=== PATIENT | female | born 1965 | race Caucasian/White ===

== ENCOUNTER 2021-09-16 00:58 | Emergency (ER) | payer OTHER ==
[2021-09-16] MEDS ORDERED: ONDANSETRON 4 MG/2 ML (SDV) Z0FRAN IVP STA (01:04)
[2021-09-16] MEDS ORDERED: KETOROLAC 30 MG/ML VIAL IVP STA (01:04)
[2021-09-16] MEDS ORDERED: NS IV 1000 ML 1,000 ML IV STA (01:04)
--- NOTE | 2021-09-16 01:11 | ED Abdominal Pain ---
General Chief Complaint: Abdominal/GI Problems Stated Complaint: ABDO PAIN Source of Information: Patient, EMS History of Present Illness Date Seen by Provider: Sep 16, 2021 Time Seen by Provider: 00:58 Initial Comments 55-year-old female presenting by EMS with complaints of left lower quadrant abdominal pain that had sudden onset about an hour prior to arrival. She denies any trauma to her belly. She has had a history of kidney stones. She denies any fever or chills. She has had nausea and vomiting with the pain. She denies any pain or burning with urination. She has had no diarrhea or change in her b owels. She states that she has drank some wine tonight. Timing/Duration: 1 Hour Severity/Quality: Severe Location: LLQ Radiation: LLQ Activities at Onset: None Associated Symptoms: No Back Pain, No Chest Pain, No Diaphoresis, No Fever/Chills, No Fatigue, No Headache, No Heartburn; Nausea/Vomiting (With the pain); No Rash, No Shortness of Air, No Swelling/Mass in Abdomen, No Syncope, No Weakness Allergies and Home Medications Allergies Coded Allergies: No Known Drug Allergies (Unverified , 09/16/21) Patient Home Medication List Home Medication List Reviewed: Yes Hydrocodone/Acetaminophen (Hydrocodone-Acetamin 5-325 mg) 5 Mg-325 Mg Tablet, 1 TAB PO Q6H PRN for PAIN-SEVERE (8-10) Prescribed by: MARCIA FIGUEROART on 09/16/21326 Ondansetron (Ondansetron Odt) 4 Mg Tab.rapdis, 4 MG PO Q6H PRN for NAUSEA/VOMITING Prescribed by: MARCIA LINNYART on 09/16/21 032 Tamsulosin HCl (Flomax) 0.4 Mg Cap, 0.4 MG PO DAILY Prescribed by: MARCIA LINNYART on 09/16/21 032 Review of Systems Review of Systems Constitutional: No chills, No fever EENTM: No Symptoms Reported Respiratory: No Symptoms Reported Cardiovascular: No Symptoms Reported Gastrointestinal: See HPI Genitourinary: Denies Burning, Denies Drainage, Denies Frequency; Flank Pain (Left flank and lower quadrant abdominal pain) Musculoskeletal: no symptoms reported Skin: No rash Psychiatric/Neurological: Anxiety Endocrine: No Symptoms Reported Hematologic/Lymphatic: No Symptoms Reported Past Kzdrwvc-Yjrxqk-Epbxvb Hx Patient Social History Alcohol Use?: Yes Alcohol type: Wine Past Medical History Surgery/Hospitalization HX: Kidney stones Physical Exam Vital Signs Vital Signs - First Documented 09/16/21 00:58 Temp 36.4 Pulse 84 Resp 18 B/P (MAP) 149/86 (107) Pulse Ox 95 O2 Delivery Room Air Capillary Refill : Height/Weight/BMI Height: '" Weight: lbs. oz. kg; BMI Method: General Appearance: mild distress, obese HEENT: PERRL/EOMI, pharynx normal Neck: non-tender, full range of motion, supple, normal inspection Respiratory: chest non-tender, lungs clear, normal breath sounds, no respiratory distress, no accessory muscle use Cardiovascular: normal peripheral pulses, regular rate, rhythm Gastrointestinal: normal bowel sounds, non tender (Complaints of pain but denies any increase in the pain with palpation), soft, no pulsatile mass; No distended, No guarding, No rebound, No tenderness Rectal: deferred Extremities: normal range of motion, non-tender, no calf tenderness, normal capillary refill Back: no CVA tenderness, no vertebral tenderness Neurologic/Psychiatric: alert, oriented x 3 Skin: normal color, warm/dry Progress/Results/Core Measures Results/Orders Lab Results Laboratory Tests Test 09/16/21 01:07 Range/Units White Blood Count 12.5 H 4.3-11.0 10^3/uL Red Blood Count 4.31 3.80-5.11 10^6/uL Hemoglobin 11.6 11.5-16.0 g/dL Hematocrit 35 35-52 % Mean Corpuscular Volume 81 80-99 fL Mean Corpuscular Hemoglobin 27 25-34 pg Mean Corpuscular Hemoglobin Concent 33 32-36 g/dL Red Cell Distribution Width 13.7 10.0-14.5 % Platelet Count 387 130-400 10^3/uL Mean Platelet Volume 9.1 9.0-12.2 fL Immature Granulocyte % (Auto) 0 % Neutrophils (%) (Auto) 63 42-75 % Lymphocytes (%) (Auto) 25 12-44 % Monocytes (%) (Auto) 9 0-12 % Eosinophils (%) (Auto) 2 0-10 % Basophils (%) (Auto) 1 0-10 % Neutrophils # (Auto) 7.9 H 1.8-7.8 10^3/uL Lymphocytes # (Auto) 3.1 1.0-4.0 10^3/uL Monocytes # (Auto) 1.2 H 0.0-1.0 10^3/uL Eosinophils # (Auto) 0.2 0.0-0.3 10^3/uL Basophils # (Auto) 0.1 0.0-0.1 10^3/uL Immature Granulocyte # (Auto) 0.0 0.0-0.1 10^3/uL Sodium Level 137 135-145 MMOL/L Potassium Level 4.0 3.6-5.0 MMOL/L Chloride Level 99 98-107 MMOL/L Carbon Dioxide Level 25 21-32 MMOL/L Anion Gap 13 5-14 MMOL/L Blood Urea Nitrogen 25 H 7-18 MG/DL Creatinine 1.06 0.60-1.30 MG/DL Estimat Glomerular Filtration Rate 62 BUN/Creatinine Ratio 24 Glucose Level 188 H 70-105 MG/DL Calcium Level 8.9 8.5-10.1 MG/DL Corrected Calcium 9.1 8.5-10.1 MG/DL Total Bilirubin 0.2 0.1-1.0 MG/DL Aspartate Amino Transf (AST/SGOT) 19 5-34 U/L Alanine Aminotransferase (ALT/SGPT) 20 0-55 U/L Alkaline Phosphatase 106 40-136 U/L Total Protein 6.5 6.4-8.2 GM/DL Albumin 3.8 3.2-4.5 GM/DL Lipase 23 8-78 U/L My Orders Orders - MARCIA COREY MD Comprehensive Metabolic Panel (09/16/21 01:04) Lipase (09/16/21 01:04) Ua Culture If Indicated (09/16/21 01:04) Ed Iv/Invasive Line Start (09/16/21 01:04) Cbc With Automated Diff (09/16/21 01:04) Ct Abdomen/Pelvis Wo (09/16/21 01:04) Ns Iv 1000 Ml (Sodium Chloride 0.9%) (09/16/21 01:04) Ketorolac Injection (Toradol Injection) (09/16/21 01:04) Ondansetron Injection (Zofran Injectio (09/16/21 01:04) Strain Urine (09/16/21 02:58) Tamsulosin Capsule (Flomax Capsule) (09/16/21 03:00) Rx-Hydrocodone/Apap 5-325 Mg (Rx-Vicodin (09/16/21 03:30) Medications Given in ED Current Medications Medications Dose Ordered Sig/Cass Route Start Time Stop Time Status Last Admin Dose Admin Acetaminophen/ Hydrocodone Bitart 1 ea Q6H PRN PO 09/16/21 03:30 09/16/21 03:32 DC 09/16/21 03:32 1 EA Vital Signs/I&O 09/16/21 09/16/21 00:58 03:25 Temp 36.4 Pulse 84 96 Resp 18 18 B/P (MAP) 149/86 (107) 149/86 Pulse Ox 95 96 O2 Delivery Room Air Room Air Progress Progress Note #1: Progress Note Check labs as well as urine and CT scan of the abdomen and pelvis. Give normal saline 1 L IV fluid bolus for hydration, Toradol 30 mg IV for pain, Zofran 4 mg IV for nausea and vomiting. Differential diagnosis includes kidney stone, diverticulitis, constipation, colitis, pyelonephritis, cystitis Progress Note #2: Progress Note Labs shows mild elevation white blood cell count to 12.5. Chemistry stable without acute significant abnormality. CT scan shows a small 1 mm kidney stone at the left UVJ. There is mild to moderate hydronephrosis and hydroureter. Counseled patient and about results and findings. Advised to push fluids and rest. Use Flomax to help the ureter relax and the stone pass. Hydrocodone for severe pain. Check back with regular provider or urologist if not improving Diagnostic Imaging Diagonstic Imaging: CT Plain Films/CT/US/NM/MRI: abdomen, pelvis Comments NAME: [facility] REC#: [id number] PT STATUS: REG ER : 1965 PHYSICIAN: MARCIA COREY MD ADMIT DATE: 09/16/21/ER FS Signed Date of Exam:09/16/21 CT ABDOMEN/PELVIS WO PROCEDURE: CT abdomen and pelvis without contrast. TECHNIQUE: Multiple contiguous axial images were obtained through the abdomen and pelvis without the use of intravenous contrast. Auto Exposure Controls were utilized during the CT exam to meet ALARA standards for radiation dose reduction. INDICATION: Left lower quadrant pain The lung bases are clear. Liver appears normal. The gallbladder appears normal. Pancreas appears normal. Spleen appears normal. GE junction is unremarkable. Adrenals are normal. There is a 1 mm calculus in lower pole calyx of the right kidney. There is a 2 mm calculus in the distal left ureter causing hydronephrosis of left kidney. Small intestine and colon are unremarkable. Uterus and ovaries are unremarkable. There is no intraperitoneal free air or free fluid. IMPRESSION: Right nephrolithiasis. Small calculus distal left ureter near the ureterovesical junction causing mild hydronephrosis of left kidney. Dictated by: Dictated on workstation # [id number] Dict: 09/16/21 0238 Trans: 09/16/21240 TCB [id number] Interpreted by: SYLVIE RODRIGUEZ MD Electronically signed by: SYLVIE RODRIGUEZ MD 09/16/21240 Reviewed: Reviewed by Me Departure Impression Primary Impression: Renal colic on left side Additional Impressions: Left lower quadrant abdominal pain Calculus of distal left ureter Disposition: HOME, SELF-CARE Condition: Stable Departure-Patient Inst. Decision time for Depature: 02:58 Referrals: NO,LOCAL PHYSICIAN (PCP) Primary Care Physician JERROD LOVE MD Patient Instructions: Kidney Stone, Adult ED, Kidney Stone Diet, How to Strain Your Urine Add. Discharge Instructions: Stay well-hydrated and drink plenty of fluids. Take the Flomax to help with irritation of the ureter. If pain and symptoms do not resolve within the next 2 to 3 days then check back with urology about your symptoms. All discharge instructions reviewed with patient and/or family. Voiced understanding. Scripts Ondansetron (Ondansetron Odt) 4 Mg Tab.rapdis 4 MG PO Q6H PRN for NAUSEA/VOMITING for 3 Days, #12 TAB 0 Refills Prov: MARCIA COREY MD 09/16/21 Hydrocodone/Acetaminophen (Hydrocodone-Acetamin 5-325 mg) 5 Mg-325 Mg Tablet 1 TAB PO Q6H PRN for PAIN-SEVERE (8-10) for 4 Days, #16 TAB 0 Refills Prov: MARCIA COREY MD 09/16/21 Tamsulosin HCl (Flomax) 0.4 Mg Cap 0.4 MG PO DAILY for renal colic for 5 Days, #5 CAP 0 Refills Prov: MARCIA COREY MD 09/16/21 MARCIA COREY MD Sep 16, 2021 01:11
[2021-09-16 01:17] LABS: BASOPHILS # (AUTO) 0.1 10^3/uL (0.0-0.1); BASOPHILS % (AUTO) 1 % (0-10); EOSINOPHILS # (AUTO) 0.2 10^3/uL (0.0-0.3); EOSINOPHILS % (AUTO) 2 % (0-10); HEMATOCRIT 35 % (35-52); HEMOGLOBIN 11.6 g/dL (11.5-16.0); LYMPHOCYTES # (AUTO) 3.1 10^3/uL (1.0-4.0); LYMPHOCYTES % (AUTO) 25 % (12-44); MEAN CORPUSCULAR HEMOGLOBIN 27 pg (25-34); MEAN CORPUSCULAR HGB CONC 33 g/dL (32-36); MEAN CORPUSCULAR VOLUME 81 fL (80-99); MEAN PLATELET VOLUME 9.1 fL (9.0-12.2); MONOCYTES # (AUTO) 1.2 10^3/uL (0.0-1.0); MONOCYTES % (AUTO) 9 % (0-12); NEUTROPHILS # (AUTO) 7.9 10^3/uL (1.8-7.8); NEUTROPHILS % (AUTO) 63 % (42-75); PLATELET COUNT 387 10^3/uL (130-400); WHITE BLOOD COUNT 12.5 10^3/uL (4.3-11.0)
[2021-09-16 01:42] LABS: BILIRUBIN,TOTAL 0.2 MG/DL (0.1-1.0); CALCIUM 8.9 MG/DL (8.5-10.1); CREATININE SERUM 1.06 MG/DL (0.60-1.30)
[2021-09-16 01:43] LABS: ALBUMIN 3.8 GM/DL (3.2-4.5); TOTAL PROTEIN 6.5 GM/DL (6.4-8.2)
--- NOTE | 2021-09-16 02:42 | Diagnostic Imaging Report ---
PROCEDURE: CT abdomen and pelvis without contrast. TECHNIQUE: Multiple contiguous axial images were obtained through the abdomen and pelvis without the use of intravenous contrast. Auto Exposure Controls were utilized during the CT exam to meet ALARA standards for radiation dose reduction. INDICATION: Left lower quadrant pain The lung bases are clear. Liver appears normal. The gallbladder appears normal. Pancreas appears normal. Spleen appears normal. GE junction is unremarkable. Adrenals are normal. There is a 1 mm calculus in lower pole calyx of the right kidney. There is a 2 mm calculus in the distal left ureter causing hydronephrosis of left kidney. Small intestine and colon are unremarkable. Uterus and ovaries are unremarkable. There is no intraperitoneal free air or free fluid. IMPRESSION: Right nephrolithiasis. Small calculus distal left ureter near the ureterovesical junction causing mild hydronephrosis of left kidney. Dictated by: Dictated on workstation # [id number]
[2021-09-16] MEDS ORDERED: TAMSULOSIN 0.4 MG (FLOMAX) CAP PO STA (03:00)
[2021-09-16 03:25] VITALS: BP 149/86
[2021-09-16] MEDS ORDERED: ONDA4TAB11 PO (03:26)
[2021-09-16] MEDS ORDERED: TMSL.4C PO (03:26)
[2021-09-16] MEDS ORDERED: ACHD5005 PO (03:26)
== END 2021-09-16 03:32 | disposition home or self-care (01) ==
LOC: ER FS 01:03
DX: N13.2 Hydronephrosis with renal and ureteral calculous obstruction (principal); D72.829 Elevated white blood cell count, unspecified
CPT/HCPCS: 74176; 80053; 83690